=== PATIENT | female | born 1980 | race American Indian/Alaskan Native ===

== ENCOUNTER 2023-02-20 01:38 | Emergency (ER) | payer MEDICAID ==
[2023-02-20] MEDS ORDERED: Ibuprofen 200 MG Tab PO ONE (02:17)
[2023-02-20] MEDS ORDERED: Take Home: Naproxen 500 MG Tab, 4 Tab Pack PO ONE (03:06)
== END 2023-02-20 03:31 | disposition home or self-care (01) ==
LOC: VM.ED 01:38
DX: S20.219A Contusion of unspecified front wall of thorax, initial encounter (principal); S01.01XA Laceration without foreign body of scalp, initial encounter; S01.511A Laceration without foreign body of lip, initial encounter; Z88.0 Allergy status to penicillin; Z88.2 Allergy status to sulfonamides; Y04.0XXA Assault by unarmed brawl or fight, initial encounter
CPT/HCPCS: 70450; 70486; 71045; 99284; A9270-GY